=== PATIENT | male | born 1990 | race American Indian/Alaskan Native ===

== ENCOUNTER 2016-11-06 19:01 | Emergency (ER) | payer SELFPAY ==
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
--- NOTE | 2016-11-06 21:10 | Emergency Department Report ---
HPI - General Chief Complaint: Head Injury Time Seen by Provider: 11/06/16 20:48 - HPI HPI: patient states that he fell off a skateboard yesterday, landed on the right side of his face, c/o swelling, severe facial pain, severe headache, and increase sleepiness. Pt describes pain as 10/10, sharp, accompanied by nausea. patient denies any past medical history. ED Past Medical Hx - Past Medical History Previous Medical History?: No - Surgical History Past Surgical History?: No - Social History Smoking Status: Current Every Day Smoker Substance Use Type: Alcohol, Marijuana - Medications Home Medications: Home Medications Medication Instructions Recorded Confirmed Last Taken Type HYDROcodone/APAP 5-325 [Anderson 1 each PO Q6HR PRN #14 tablet 10/16/13 Unknown Rx 5/325] Penicillin Vk [Veetids TAB] 500 mg PO QID #40 tablet 10/16/13 Unknown Rx ED Review of Systems ROS: Stated complaint: RT EYE INJURY Other details as noted in HPI Comment: All other systems reviewed and negative Eyes: eye pain, vision change Neurological: headache, weakness Physical Exam - Physical Exam Vital Signs: Vital Signs 11/06/16 19:05 Temperature 99.0 F Pulse Rate 65 Respiratory 18 Rate Blood Pressure 142/95 O2 Sat by Pulse 100 Oximetry Physical Exam: - General Limitations: No Limitations General appearance: alert, in no apparent distress, obese - Head Head exam: Present: Right periorbital swelling, large ecchymosis - Eye Eye exam: Present: right eye blood shot, with surrounding erythema, difficult to permor - ENT ENT exam: Present: mucous membranes moist - Neck Neck exam: Present: normal inspection - Respiratory Respiratory exam: Present: normal lung sounds bilaterally. Absent: respiratory distress - Cardiovascular Cardiovascular Exam: Present: normal rhythm, tachycardia. Absent: systolic murmur, diastolic murmur, rubs, gallop - GI/Abdominal GI/Abdominal exam: Present: soft, normal bowel sounds - Extremities Exam Extremities exam: Present: normal inspection - Back Exam Back exam: Present: normal inspection - Neurological Exam Neurological exam: Present: alert, oriented X3 - Psychiatric Psychiatric exam: Present: depressed, agitated, anxious, flat affect - Skin Skin exam: Present: warm, dry, intact, normal color. Absent: rash ED Course Vital Signs 11/06/16 19:05 Temperature 99.0 F Pulse Rate 65 Respiratory 18 Rate Blood Pressure 142/95 O2 Sat by Pulse 100 Oximetry - Reevaluation(s) Reevaluation #1: 11/06/16 21:56 I ADVISED TO PATIENT OF THE EXTENT OF HIS INJURIES AND THAT HE WOULD BE TRANSFERRED TO [facility] FOR HIGHER LEVEL OF CARE. HE INITIALLY AGREED BUT LATER CHANGED HIS MIND, STATING HE HAS SOME FAMILY STUFF TO TAKE CARE OF, AND HE WANTS TO SIGN OUT AMA. PATIENT ADVISED OF RISKS OF SUDDEN , DISABILITY, BUT HE STILL WANTS TO LEAVE AMA. PATIENT IS ALERT, ORIENTED AND IN HIS RIGHT MIND, SO HE WAS ALLOWED TO SIGN OUT AMA. Critical care attestation.: If time is entered above; I have spent that time in minutes in the direct care of this critically ill patient, excluding procedure time. ED Disposition Clinical Impression: Subdural hematoma, Facial bone fracture Disposition: [id number] LEFT AGAINST MED ADVICE Is pt being admited?: No Does the pt Need Aspirin: No Condition: Stable Referrals: PRIMARY CARE, [Primary Care Provider] - 3-5 Days
[2016-11-06 21:24] VITALS: BP 131/79
--- NOTE | 2016-11-07 07:36 | XRay Report ---
AP CHEST: HISTORY: chest pain AP view of the chest demonstrates a normal mediastinal and cardiac contour with clear lungs and normal bony and soft tissue structures. IMPRESSION: Unremarkable AP chest.
== END 2016-11-06 21:40 | disposition left against medical advice (07) ==
LOC: ED 19:01
DX: S06.5X0A Traumatic subdural hemorrhage without loss of consciousness, initial encounter (principal); S02.92XA Unspecified fracture of facial bones, initial encounter for closed fracture; F17.210 Nicotine dependence, cigarettes, uncomplicated; F12.10 Cannabis abuse, uncomplicated; W18.30XA Fall on same level, unspecified, initial encounter; Y93.51 Activity, roller skating (inline) and skateboarding; Y92.89 Other specified places as the place of occurrence of the external cause; Y99.8 Other external cause status
CPT/HCPCS: 70450; 70486; 71010; 72125; 99284

== ENCOUNTER 2020-07-21 23:47 | Emergency (ER) | payer SELFPAY ==
[2020-07-22] MEDS ORDERED: SODIUM CHLORIDE 0.9% 1000 ML 1,000 ML IV ONE (00:01)
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
[2020-07-22] MEDS ORDERED: TETANUS,DIPH,PERTUSS(ACELL) VACCINE 0.5 ML SYRINGE IM ONE (00:16)
[2020-07-22] MEDS ORDERED: AMPICILLIN/SULBACTA 1.5GM/50ML 1.5 GM/50 ML BAG IV ONE (01:16)
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
[2020-07-22 01:28] LABS: Basophils % (Auto) 0.5 % (0.0-1.8); Eosinophils # (Auto) 0.1 K/mm3 (0.0-0.4); Eosinophils % (Auto) 1.2 % (0.0-4.3); Hematocrit 38.6 % (35.5-45.6); Hemoglobin 13.1 gm/dl (11.8-15.2); Lymphocytes # (Auto) 1.6 K/mm3 (1.2-5.4); Lymphocytes % (Auto) 22.6 % (13.4-35.0); Mean Corpuscular HGB Conc 34 % (32-34); Mean Corpuscular Volume 90 fl (84-94); Monocytes # (Auto) 0.9 K/mm3 (0.0-0.8); Monocytes % (Auto) 12.3 % (0.0-7.3); Platelet Count 287 K/mm3 (140-440); Red Blood Count 4.27 M/mm3 (3.65-5.03); Red Cell Distribution Width 13.3 % (13.2-15.2)
[2020-07-22 01:40] LABS: INR 1.04 (0.87-1.13); Partial Thromboplastin Time 25.1 Sec. (24.2-36.6)
[2020-07-22 01:45] LABS: BUN/Creatinine Ratio 12; Blood Urea Nitrogen 13 mg/dL (9-20); Calcium 8.4 mg/dL (8.4-10.2); Hemolysis Index 1
[2020-07-22 02:31] VITALS: BP 143/90
== END 2020-07-22 03:30 | disposition other institution (70) ==
LOC: ED 23:47
DX: S91.331A Puncture wound without foreign body, right foot, initial encounter (principal); S92.009A Unspecified fracture of unspecified calcaneus, initial encounter for closed fracture; F17.200 Nicotine dependence, unspecified, uncomplicated; F12.90 Cannabis use, unspecified, uncomplicated; Z79.899 Other long term (current) drug therapy; W34.00XA Accidental discharge from unspecified firearms or gun, initial encounter; Y93.89 Activity, other specified; Y92.89 Other specified places as the place of occurrence of the external cause; Y99.8 Other external cause status
CPT/HCPCS: 29515; 36415; 73610; 73630; 73706; 80048; 85025; 85610; 85730; 86850; 86900; 86901; 96361; 96365; 99284; J0295; J7030; Q9967; 90715